=== PATIENT | male | born 1970 | race American Indian/Alaskan Native ===

== ENCOUNTER 2016-10-30 09:37 | Emergency (ER) | payer SELFPAY ==
[2016-10-30] MEDS ORDERED: NACL 0.9% 1000 ML 1,000 ML IV ONE (10:38)
[2016-10-30] MEDS ORDERED: MORPHINE IV ONE (10:50)
[2016-10-30] MEDS ORDERED: ZOFRAN IV ONE (10:50)
--- NOTE | 2016-10-30 11:03 | Emergency Department Report ---
ED General Adult HPI - General Chief complaint: Headache Stated complaint: HEADACHE Time Seen by Provider: 10/30/16 10:36 Source: patient, EMS Mode of arrival: Stretcher Limitations: Other - History of Present Illness Initial comments: 46-year-old male presents to the emergency department via EMS complaining of headache and neck pain. Patient states that he had been drinking alcohol all last night and early this morning. He states that he was walking around and passed out, hitting his head on the floor. Patient is complaining of pain above his left eye the top of his head as well as in the back of his neck. There are no other complaints. -: Sudden, This morning Location: head, neck Radiation: non-radiation Severity scale (0 -10): 10 Quality: aching Consistency: constant Improves with: none Worsens with: none Associated Symptoms: denies other symptoms - Related Data Previous Rx's Medication Instructions Recorded Last Taken Type ALBUTEROL Inhaler [ProAir HFA 2 puff IH QID PRN #1 inhalation 04/17/14 05/05/14 Rx Inhaler] Budesonide [Pulmicort Respules] 0.5 mg IH Q12HRT #30 nebu 05/12/14 Unknown Rx Ipratropium/Albuterol Sulfate 1 ampul IH Q6HRT #30 ampul.neb 05/12/14 01/03/15 Rx [Duoneb 0.5 mg-3 mg/3 ml Soln] Lisinopril [Zestril TAB] 40 mg PO QDAY #30 tablet 05/12/14 01/03/15 Rx Albuterol Sulfate [Ventolin HFA] 2 puff IH Q4H PRN #1 hfa.aer.ad 01/03/15 Unknown Rx amLODIPine [Norvasc] 10 mg PO DAILY #30 tab 01/03/15 Unknown Rx predniSONE [Deltasone] 20 mg PO TID #9 tab 01/03/15 Unknown Rx Allergies Allergy/AdvReac Type Severity Reaction Status Date / Time No Known Allergies Allergy Unverified 04/17/14 14:32 ED Review of Systems ROS: Stated complaint: HEADACHE Other details as noted in HPI Comment: All other systems reviewed and negative Musculoskeletal: other (neck pain) Neurological: headache ED Past Medical Hx - Past Medical History Previous Medical History?: Yes Hx Hypertension: Yes Hx Congestive Heart Failure: No Hx Diabetes: No Hx Sickle Cell Disease: No Hx Asthma: Yes Hx COPD: No - Surgical History Past Surgical History?: No - Family History Family history: hypertension - Social History Smoking Status: Current Some Day Smoker Substance Use Type: Alcohol - Medications Home Medications: Home Medications Medication Instructions Recorded Confirmed Last Taken Type ALBUTEROL Inhaler [ProAir HFA 2 puff IH QID PRN #1 inhalation 04/17/14 01/03/15 05/05/14 Rx Inhaler] Budesonide [Pulmicort Respules] 0.5 mg IH Q12HRT #30 nebu 05/12/14 01/03/15 Unknown Rx Ipratropium/Albuterol Sulfate 1 ampul IH Q6HRT #30 ampul.neb 05/12/14 01/03/15 01/03/15 Rx [Duoneb 0.5 mg-3 mg/3 ml Soln] Lisinopril [Zestril TAB] 40 mg PO QDAY #30 tablet 05/12/14 01/03/15 01/03/15 Rx Albuterol Sulfate [Ventolin HFA] 2 puff IH Q4H PRN #1 hfa.aer.ad 01/03/15 Unknown Rx amLODIPine [Norvasc] 10 mg PO DAILY #30 tab 01/03/15 Unknown Rx predniSONE [Deltasone] 20 mg PO TID #9 tab 01/03/15 Unknown Rx ED Physical Exam - General Limitations: Other General appearance: alert, in no apparent distress - Head Head exam: Present: normocephalic, other (2 cm linear abrasion noted to the left parietal scalp with mild underlying edema. No active bleeding is noted. Edema and ecchymosis is noted superior to the left eye.) - Eye Eye exam: Present: normal appearance, PERRL, EOMI - ENT ENT exam: Present: normal exam, normal orophraynx, mucous membranes moist - Neck Neck exam: Present: normal inspection, tenderness (tenderness to palpation diffuse posterior paracervical spinous muscles. No midline tenderness.), full ROM. Absent: meningismus - Respiratory Respiratory exam: Present: normal lung sounds bilaterally. Absent: respiratory distress - Cardiovascular Cardiovascular Exam: Present: regular rate, normal rhythm, normal heart sounds - GI/Abdominal GI/Abdominal exam: Present: soft, normal bowel sounds. Absent: distended, tenderness - Extremities Exam Extremities exam: Present: normal inspection, full ROM. Absent: tenderness - Back Exam Back exam: Present: normal inspection, full ROM. Absent: tenderness - Neurological Exam Neurological exam: Present: alert, oriented X3. Absent: motor sensory deficit - Skin Skin exam: Present: warm, dry, intact ED Course Vital Signs 10/30/16 10/30/16 10/30/16 09:55 10:01 10:35 Temperature 99.7 F H 99.7 F H Pulse Rate 100 H 100 H Respiratory 16 16 18 Rate Blood Pressure 187/109 Blood Pressure 187/109 [Right] O2 Sat by Pulse 96 96 96 Oximetry 10/30/16 10/30/16 10:57 12:20 Temperature Pulse Rate 91 H Respiratory 18 16 Rate Blood Pressure Blood Pressure 136/88 [Right] O2 Sat by Pulse 97 Oximetry ED Medical Decision Making - EKG Data -: EKG Interpreted by Me EKG shows normal: sinus rhythm, axis, intervals, ST-T waves Rate: normal - EKG Data When compared to previous EKG there are: no significant change Interpretation: unchanged when compared t (07/19/2014), LVH - Radiology Data Radiology results: report reviewed CT of the head, orbits, and cervical spine showed no acute bony injury. There is soft tissue swelling noted above the left eye. - Medical Decision Making Imaging results reviewed and discussed with the patient. Patient has a sober ride here. Patient will be discharged home at this time. - Differential Diagnosis head injury, cervical strain, contusion, fracture, alcohol intoxication Critical care attestation.: If time is entered above; I have spent that time in minutes in the direct care of this critically ill patient, excluding procedure time. ED Disposition Clinical Impression: Forehead contusion Qualifiers: Encounter type: initial encounter Qualified Code(s): S00.83XA - Contusion of other part of head, initial encounter Disposition: DISCHARGED TO HOME OR SELFCARE Is pt being admited?: No Condition: Stable Instructions: Contusion in Adults (ED) Referrals: PRIMARY CARE, [Primary Care Provider] - 3-5 Days Time of Disposition: 13:47
--- NOTE | 2016-10-30 11:10 | Cat Scan Report ---
CT HEAD WITHOUT CONTRAST: 10/30/16 09:37:00 CLINICAL: Fall with blow to the head.. TECHNIQUE: 2.5-mm noncontrast scans. COMPARISON:None FINDINGS: Motion degrades the quality of the exam.The ventricles and sulci are normal for age. No abnormal intracranial density. A left frontal scalp hematoma measures approximately 7 cm in diameter. A central 3 cm collection of clotted blood within it. No associated skull fracture. The calvarium and skull base are intact. The sinuses are clear. No mass or mass effect. No intracranial hemorrhage, edema or extra-axial collection. The orbits are intact. IMPRESSION: Left frontal supraorbital scalp edema and hemorrhage. No skull fracture and no evidence of intracranial injury.
--- NOTE | 2016-10-30 11:11 | Cat Scan Report ---
CT CERVICAL SPINE WITHOUT CONTRAST:10/30/16 09:37:00 CLINICAL: Fall with blow to the head. TECHNIQUE: Volumetric acquisition and 1.25-mm scan reconstructions without contrast. Sagittal and coronal reformats were performed. FINDINGS: Normal vertebral body height, alignment and disk spaces. No fracture or subluxation. Mild degenerative disc disease at C5-6. Normal soft tissues and airway. No apparent disc protrusions or bulges. IMPRESSION: No apparent traumatic injury. Mild C5-6 degenerative disc disease.
--- NOTE | 2016-10-30 11:17 | Cat Scan Report ---
CT FACIAL BONES AND ORBITS WITHOUT CONTRAST: 10/30/16 09:37:00 CLINICAL: Fall with blow to the head. TECHNIQUE: Volumetric acquisition and 1.25 mm scan reconstructions without contrast. Sagittal and coronal reformats were performed. FINDINGS: Left periorbital and frontal soft tissue swelling with a 3 cm hematoma. The facial bones are intact. No facial fracture or skull fracture. Normal orbits. Mild maxillary mucoperiosteal thickening. IMPRESSION: Negative except for left periorbital and frontal soft tissue injury.
[2016-10-30 12:21] VITALS: BP 136/88
== END 2016-10-30 13:59 | disposition home or self-care (01) ==
LOC: ED 09:37
DX: S00.83XA Contusion of other part of head, initial encounter (principal); I10 Essential (primary) hypertension; J45.909 Unspecified asthma, uncomplicated; F17.200 Nicotine dependence, unspecified, uncomplicated; W18.30XA Fall on same level, unspecified, initial encounter; Y93.9 Activity, unspecified; Y92.9 Unspecified place or not applicable; Y99.9 Unspecified external cause status
CPT/HCPCS: 70450; 70480; 72125; 93005; 93010; 96361; 96374; 96375; 99284; J2270; J2405

== ENCOUNTER 2019-04-29 16:40 | Observation (INO) | payer SELFPAY ==
--- NOTE | 2019-04-29 17:09 | Emergency Department Report ---
Blank Doc - Documentation Documentation: This is a 48-year-old male that presents with midsternum chest pain and with SOB and radiation to left arm. Stated has a cough and is worse with coughing. This initial assessment/diagnostic orders/clinical plan/treatment(s) is/are subject to change based on patient's health status, clinical progression and re- assessment by fellow clinical providers in the ED. Further treatment and workup at subsequent clinical providers discretion. Patient/guardians urged not to elope from the ED as their condition may be serious if not clinically assessed and managed. Initial orders include: 1- Patient sent to MAIN ED for further evaluation and treatment. 2- labs 3- EKG 4- CXR
--- NOTE | 2019-04-29 17:42 | XRay Report ---
CHEST 2 VIEWS INDICATION / CLINICAL INFORMATION: Chest Pain. COMPARISON: None available. FINDINGS: SUPPORT DEVICES: None. HEART / MEDIASTINUM: No significant abnormality. LUNGS / PLEURA: No significant pulmonary or pleural abnormality. No pneumothorax. ADDITIONAL FINDINGS: No significant additional findings. IMPRESSION: 1. No acute findings. Signer Name: Jose Enriquez MD Signed: 04/29/2019 4:38 PM Workstation Name: [id number]
[2019-04-29 17:56] LABS: BUN/Creatinine Ratio 13; Blood Urea Nitrogen 9 mg/dL (9-20); Calcium 9.1 mg/dL (8.4-10.2); Hemolysis Index 5
[2019-04-29 17:58] LABS: Basophils # (Auto) 0.1 K/mm3 (0.0-0.1); Eosinophils # (Auto) 0.1 K/mm3 (0.0-0.4); Eosinophils % (Auto) 1.8 % (0.0-4.3); Monocytes # (Auto) 0.9 K/mm3 (0.0-0.8); Monocytes % (Auto) 12.4 % (0.0-7.3)
[2019-04-29 18:14] LABS: Partial Thromboplastin Time 27.2 Sec. (24.2-36.6)
[2019-04-29 19:05] LABS: Hemoglobin 12.6 gm/dl (11.8-15.2)
[2019-04-29 19:06] LABS: Hematocrit 40.6 % (35.5-45.6); Mean Corpuscular HGB Conc 31 % (32-34); Mean Corpuscular Volume 77 fl (84-94); Red Cell Distribution Width 21.4 % (13.2-15.2)
[2019-04-29 19:07] LABS: Basophils % (Auto) 0.8 % (0.0-1.8); Lymphocytes # (Auto) 1.2 K/mm3 (1.2-5.4); Lymphocytes % (Auto) 15.8 % (13.4-35.0); Platelet Count 234 K/mm3 (140-440)
[2019-04-29] MEDS ORDERED: BABY ASPIRIN PO ONE (21:55)
[2019-04-29] MEDS ORDERED: APRESOLINE IV ONE (21:55)
--- NOTE | 2019-04-29 22:22 | Emergency Department Report ---
ED Chest Pain HPI - General Chief Complaint: Chest Pain Stated Complaint: CHEST PAIN/FINGER NUMB Time Seen by Provider: 04/29/19 17:07 Source: patient Mode of arrival: Ambulatory Limitations: No Limitations - History of Present Illness Initial Comments: 48-year-old -[place] male presents to the emergency department with a few different complaints. Patient complains of a generalized thumping pain to his chest that has been going on since last night. The pain will sometimes radiate down his left arm and is associated with some shortness of breath. He has a chronic cough that has been going on for many months and he says that his cough does worsen the pains. The patient also complains of some numbness to the "left side of my body." He denies any headache, vision change, slurred speech. He has not taken anything for her symptoms prior to presentation. He has a past medical history of hypertension and does present with elevated blood pressure despite alleged compliance with his medications. He denies any tobacco or illicit drug use. No recent travel or sick contacts at home. He does not have a primary care physician. He has never had a stress test done. Severity scale (0 -10): 5 - Related Data Previous Rx's Medication Instructions Recorded Last Taken Type amLODIPine [Norvasc] 10 mg PO DAILY #30 tab 01/03/15 04/30/19 Rx Allergies Allergy/AdvReac Type Severity Reaction Status Date / Time lisinopril Allergy Angioedema Verified 04/29/19 17:09 Heart Score - HEART Score History: Moderately suspicious EKG: Normal Age: 45-65 Risk factors: 1-2 risk factors Troponin: < normal limit HEART Score: 3 - Critical Actions Critical Actions: 0-3 pts:0.9-1.7%risk of adverse cardiac event.Candidate for discharge ED Review of Systems ROS: Stated complaint: CHEST PAIN/FINGER NUMB Other details as noted in HPI Comment: All other systems reviewed and negative Constitutional: denies: chills, fever Eyes: denies: eye pain, vision change ENT: denies: ear pain, throat pain Respiratory: cough, shortness of breath Cardiovascular: chest pain. denies: palpitations Gastrointestinal: denies: abdominal pain, vomiting Genitourinary: denies: dysuria, frequency Musculoskeletal: myalgia. denies: back pain Skin: denies: rash, lesions Neurological: numbness. denies: confusion ED Past Medical Hx - Past Medical History Previous Medical History?: Yes Hx Hypertension: Yes Hx Congestive Heart Failure: No Hx Diabetes: No Hx Sickle Cell Disease: No Hx Asthma: Yes Hx COPD: No - Surgical History Past Surgical History?: No - Social History Smoking Status: Never Smoker - Medications Home Medications: Home Medications Medication Instructions Recorded Confirmed Last Taken Type amLODIPine [Norvasc] 10 mg PO DAILY #30 tab 01/03/15 04/30/19 04/30/19 Rx ED Physical Exam - General Limitations: No Limitations - Other Other exam information: GENERAL: The patient is well-developed well-nourished. HENT: Normocephalic. Atraumatic. Patient has moist mucous membranes. EYES: Extraocular motions are intact. Pupils equal reactive to light bilaterally. NECK: Supple. Trachea is midline. CHEST/LUNGS: Clear to auscultation. There is no respiratory distress noted. Chest pain is not reproducible to palpation of the chest wall. HEART/CARDIOVASCULAR: Regular. There is no tachycardia. There is no murmur. ABDOMEN: Abdomen is soft, nontender. Patient has normal bowel sounds. There is no abdominal distention. SKIN: Skin is warm and dry. NEURO: The patient is awake, alert, and oriented. The patient is cooperative. No motor or focal deficits. The patient has normal speech. Cranial nerves II through XII grossly intact. MUSCULOSKELETAL: There is no tenderness or deformity. There is no limitation range of motion. There is no evidence of acute injury. ED Course Vital Signs 04/29/19 04/29/19 04/29/19 17:07 21:16 21:25 Temperature 98.1 F Pulse Rate 86 73 Respiratory 16 15 19 Rate Blood Pressure 181/120 O2 Sat by Pulse 96 Oximetry 04/29/19 04/29/19 04/29/19 21:30 21:45 22:00 Temperature Pulse Rate 59 L 61 59 L Respiratory 13 19 17 Rate Blood Pressure 182/113 185/115 167/111 O2 Sat by Pulse 96 98 97 Oximetry 04/29/19 04/29/19 04/29/19 22:15 22:30 22:33 Temperature Pulse Rate 61 73 69 Respiratory 17 21 Rate Blood Pressure 172/110 178/116 178/116 O2 Sat by Pulse 96 97 Oximetry 04/29/19 04/29/19 04/29/19 22:45 23:01 23:15 Temperature Pulse Rate 64 68 64 Respiratory 16 16 10 L Rate Blood Pressure 174/103 172/108 174/103 O2 Sat by Pulse 97 100 97 Oximetry 04/29/19 04/29/19 04/29/19 23:30 23:43 23:45 Temperature Pulse Rate 69 70 66 Respiratory 17 15 17 Rate Blood Pressure 163/108 172/108 163/103 O2 Sat by Pulse 97 99 99 Oximetry 04/30/19 04/30/19 04/30/19 00:00 00:45 00:53 Temperature Pulse Rate 68 Respiratory Rate Blood Pressure 163/103 178/118 178/116 O2 Sat by Pulse 98 Oximetry KG score - Kg Score Age > 65: (0) No Aspirin use within the Past 7 Days: (0) No 3 or more CAD Risk Factors: (0) No 2 or more Angina events in past 24 hrs: (1) Yes Known CAD with more than 50% Stenosis: (0) No Elevated Cardiac Markers: (0) No ST Deviation Greater than 0.5mm: (0) No KG Score: 1 ED Medical Decision Making - Lab Data Result diagrams: 04/29/19 17:24 04/29/19 17:24 - EKG Data -: EKG Interpreted by Me EKG shows normal: sinus rhythm, axis, intervals, QRS complexes, ST-T waves (early repolarization) Rate: normal - EKG Data When compared to previous EKG there are: previous EKG unavailable Interpretation: other (early repolarization) - Radiology Data Radiology results: report reviewed, image reviewed interpreted by me: Chest x-ray does not show any acute process. There are no pleural effusions, obvious pneumonia and there is no pneumothorax. CT head/brain wo con INDICATION / CLINICAL INFORMATION: headache. TECHNIQUE: Axial CT imaging of the brain was obtained without IV contrast. Coronal and sagittal reformatted imaging obtained and reviewed. All CT scans at this location are performed using CT dose reduction for ALARA by means of automated exposure control. COMPARISON: None available. FINDINGS: No intracranial hemorrhage, mass, or midline shift is noted. No extra-axial fluid collection or suggestion of acute territorial infarction. Ventricular system and basilar cisterns are unremarkable. Visualized paranasal sinuses demonstrate mild mucosal thickening throughout the anterior and posterior ethmoid air cells bilaterally. The remainder of the paranasal sinuses are well aerated and clear. No calvarial fracture or other abnormality noted. IMPRESSION: 1. No acute intracranial abnormality. 2. Mild mucosal thickening throughout the ethmoid air cells bilaterally. CTA CHEST WITH IV CONTRAST INDICATION / CLINICAL INFORMATION: CP, elevated dimer. TECHNIQUE: Axial CT images were obtained through the chest after injection of 100 cc IV contrast. 3 plane MIP and/or 3D reconstructions were produced. All CT scans at this location are performed using CT dose reduction for ALARA by means of automated exposure control. COMPARISON: Chest radiograph, 04/29/2019 FINDINGS: PULMONARY ARTERIES: No pulmonary emboli. THORACIC AORTA: No significant abnormality. HEART: No significant abnormality. CORONARY ARTERIES: No significant calcification. PLEURA: No pleural effusion. No pneumothorax. LYMPH NODES: No significant adenopathy. LUNGS: No acute air space or interstitial disease. Incidental finding of a few small blebs in both apices. ADDITIONAL FINDINGS: None. UPPER ABDOMEN: No acute findings. SKELETAL STRUCTURES: No significant osseous abnormality. IMPRESSION: 1. No CT evidence for pulmonary embolism. 2. No acute findings. - Medical Decision Making Patient presents to the emergency department with a complaint of some chest pain and shortness of breath since last night. Also complains of some intermittent left-sided numbness. No obvious motor or focal deficits. Cranial nerves are i ntact. CT scan of the head did not show any bleed, shift, mass, ischemia, or any other acute process. Chest x-ray did not show any acute process. Patient's labs have been mostly unremarkable including negative troponins 2 this far, but the patient did have a slightly elevated and equivocal d-dimer. For this reason CT angiography of the chest was done but did not show any signs of any pulmonary embolism, dissection, aneurysm, or any other acute process. The patient continues to have some intermittent chest pains and has never had a full cardiac workup including any type of stress test. For these reasons, the patient will be admitted to the hospital for further evaluation and treatment and was extended for admission by the hospitalist, Dr. Vasquez. - Differential Diagnosis SD, TIA, costochondritis, GERD, pneumonia Critical Care Time: No Critical care attestation.: If time is entered above; I have spent that time in minutes in the direct care of this critically ill patient, excluding procedure time. ED Disposition Clinical Impression: Acute chest pain, Hypertensive urgency Disposition: OP ADMIT IP TO THIS HOSP Is pt being admited?: Yes Condition: Fair Instructions: Chest Pain (ED) Referrals: FLORIN COBURN MD [Primary Care Provider] - 3-5 Days Time of Disposition: 01:19 - Assessment Assessment Interval: Baseline - Level of Consciousness 1a. Level of Consciousness: alert/keenly responsive - LOC Questions 1b. LOC Questions: answers both correctly - LOC Command 1c. LOC Commands: performs tasks correctly - Best Gaze 2. Best Gaze: normal - Visual 3. Visual: no visual loss - Facial Palsy 4. Facial Palsy: normal symmetrical movement - Motor Arm 5a. Motor Arm Left: no drift 5b. Motor Arm Right: no drift - Motor Leg 6a. Motor Leg Left: no drift 6b. Motor Leg Right: no drift - Limb Ataxia 7. Limb Ataxia: absent - Sensory 8. Sensory: normal - Best Language 9. Best Language: no aphasia - Dysarthria 10. Dysarthria: normal - Extinction and Inattention 11. Extinction/Inattention: no abnormality - Scoring Total Score: 0 Stroke Severity: No Stroke Symptoms
--- NOTE | 2019-04-30 00:22 | Cat Scan Report ---
CT head/brain wo con INDICATION / CLINICAL INFORMATION: headache. TECHNIQUE: Axial CT imaging of the brain was obtained without IV contrast. Coronal and sagittal reformatted imag ing obtained and reviewed. All CT scans at this location are performed using CT dose reduction for AL STEVEN by means of automated exposure control. COMPARISON: None available. FINDINGS: No intracranial hemorrhage, mass, or midline shift is noted. No extra-axial fluid collection or sugge stion of acute territorial infarction. Ventricular system and basilar cisterns are unremarkable. Visualized paranasal sinuses demonstrate mild mucosal thickening throughout the anterior and posterio r ethmoid air cells bilaterally. The remainder of the paranasal sinuses are well aerated and clear. N o calvarial fracture or other abnormality noted. IMPRESSION: 1. No acute intracranial abnormality. 2. Mild mucosal thickening throughout the ethmoid air cells bilaterally. Signer Name: Roya Black MD Signed: 04/29/2019 11:17 PM Workstation Name: [id number]
[2019-04-30] MEDS ORDERED: APRESOLINE IV ONE (00:46)
--- NOTE | 2019-04-30 00:46 | Cat Scan Report ---
CTA CHEST WITH IV CONTRAST INDICATION / CLINICAL INFORMATION: CP, elevated dimer. TECHNIQUE: Axial CT images were obtained through the chest after injection of 100 cc IV contrast. 3 plane MIP an d/or 3D reconstructions were produced. All CT scans at this location are performed using CT dose redu ction for [facility] by means of automated exposure control. COMPARISON: Chest radiograph, 04/29/2019 FINDINGS: PULMONARY ARTERIES: No pulmonary emboli. THORACIC AORTA: No significant abnormality. HEART: No significant abnormality. CORONARY ARTERIES: No significant calcification. PLEURA: No pleural effusion. No pneumothorax. LYMPH NODES: No significant adenopathy. LUNGS: No acute air space or interstitial disease. Incidental finding of a few small blebs in both ap ices. ADDITIONAL FINDINGS: None. UPPER ABDOMEN: No acute findings. SKELETAL STRUCTURES: No significant osseous abnormality. IMPRESSION: 1. No CT evidence for pulmonary embolism. 2. No acute findings. Signer Name: Roya Black MD Signed: 04/29/2019 11:42 PM Workstation Name: [id number]
[2019-04-30] MEDS ORDERED: TYLENOL PO PRN (03:08)
[2019-04-30] MEDS ORDERED: SODIUM CHLORIDE FLUSH SYRINGE 10 ML IV PRN (03:08)
[2019-04-30] MEDS ORDERED: MORPHINE IV PRN (03:08)
[2019-04-30] MEDS ORDERED: ZOFRAN IV PRN (03:08)
[2019-04-30] MEDS ORDERED: APRESOLINE IV PRN (03:17)
--- NOTE | 2019-04-30 03:26 | History and Physical Report ---
History of Present Illness Date of examination: 04/30/19 Chief complaint: CP and left sided numbness History of present illness: 48-year-old -[place] male with PMH of HTN, Asthma with chronic perennial rhinitis presents to the emergency department with a few different complaints. Patient complains of a generalized thumping pain to his chest that has been going on since last night and when he coughs. The pain today radiate down his left arm and his fingers were numb. He felt he has some fatigue associated with some shortness of breath. He has a chronic cough that has been going on for many months and he says that his cough does worsen the pains. ALso, reports having a constant runny nose for which he has tried OTC meds but he is not taking anything now. The patient also complains of some numbness to the "left side of my body. that went away. He denies any headache, vision change, slurred speech, dysuria, polyuria, syncope, cardiac history. He has not taken anything for her symptoms prior to presentation. He has a past medical history of hypertension and does present with elevated blood pressure despite self reported compliance with his medications. Of note, his initial BP was 178/118 and he is on a meager Norvasc 10mg Po Daily. No previous hx of stress test. No FH of heart disease and no tobacco use He denies any tobacco or illicit drug use. No recent travel or sick contacts at home. He does not have a primary care physician. He has never had a stress test done. Past History Past Medical History: hypertension, other (asthma) Past Surgical History: No surgical history Social history: full code. denies: smoking, alcohol abuse Family history: no significant family history Medications and Allergies Allergies Allergy/AdvReac Type Severity Reaction Status Date / Time lisinopril Allergy Angioedema Verified 04/29/19 17:09 Home Medications Medication Instructions Recorded Confirmed Last Taken Type amLODIPine [Norvasc] 10 mg PO DAILY #30 tab 01/03/15 04/30/19 04/30/19 Rx Active Meds: Active Medications Acetaminophen (Tylenol) 650 mg PO Q4H PRN PRN Reason: Pain MILD(1-3)/Fever >100.5/PEREIRA Albuterol/Ipratropium (Duoneb *Not For Prn Use*) 1 ampul IH Q6HRT ENMANUEL Benzonatate (Tessalon Perles) 100 mg PO Q8HR [facility] Stop: 04/30/19 22:01 Guaifenesin (Mucinex Er) 600 mg PO BID [facility] Hydralazine HCl (Apresoline) 20 mg IV Q4HR PRN PRN Reason: Hypertension Sodium Chloride (Nacl 0.45% 1000 Ml) 1,000 mls @ 75 mls/hr IV DIRECT ENMANUEL Morphine Sulfate (Morphine) 2 mg IV Q4H PRN PRN Reason: Pain, Moderate (4-6) Nifedipine (Procardia Xl) 60 mg PO QDAY [facility] Ondansetron HCl (Zofran) 4 mg IV Q8H PRN PRN Reason: Nausea And Vomiting Oxymetazoline HCl (Afrin) 2 spray NS Q12H [facility] Stop: 05/03/19 03:59 Sodium Chloride (Sodium Chloride Flush Syringe 10 Ml) 10 ml IV BID ENMANUEL Sodium Chloride (Sodium Chloride Flush Syringe 10 Ml) 10 ml IV PRN PRN PRN Reason: LINE FLUSH Review of Systems All systems: negative Cardiovascular: shortness of breath Respiratory: congestion, wheezing Exam - Constitutional Vitals: Temp Pulse Resp BP Pulse Ox 98.1 F 87 18 141/88 97 04/29/19 17:07 04/30/19 01:30 04/30/19 01:30 04/30/19 01:30 04/30/19 01:30 General appearance: Present: no acute distress, well-nourished - EENT Eyes: Present: PERRL ENT: hearing intact, clear oral mucosa - Neck Neck: Present: supple, normal ROM - Respiratory Respiratory effort: normal Respiratory: bilateral: CTA, wheezing (very faint.) - Cardiovascular Heart Sounds: Present: S1 & S2. Absent: rub, click - Extremities Extremities: pulses symmetrical, No edema Peripheral Pulses: within normal limits - Abdominal General gastrointestinal: Present: soft, non-tender, non-distended, normal bowel sounds Male genitourinary: Present: normal - Integumentary Integumentary: Present: clear, warm, dry - Musculoskeletal Musculoskeletal: gait normal, strength equal bilaterally - Psychiatric Psychiatric: appropriate mood/affect, intact judgment & insight - Neurologic Neurologic: CNII-XII intact, moves all extremities Results - Labs CBC & Chem 7: 04/29/19 17:24 04/29/19 17:24 Labs: Laboratory Last Values WBC 7.6 K/mm3 (4.5-11.0) 04/29/19 17:24 RBC 5.30 M/mm3 (3.65-5.03) H 04/29/19 17:24 Hgb 12.6 gm/dl (11.8-15.2) 04/29/19 17:24 Hct 40.6 % (35.5-45.6) 04/29/19 17:24 MCV 77 fl (84-94) L 04/29/19 17:24 MCH 24 pg (28-32) L 04/29/19 17:24 MCHC 31 % (32-34) L 04/29/19 17:24 RDW 21.4 % (13.2-15.2) H 04/29/19 17:24 Plt Count 234 K/mm3 (140-440) 04/29/19 17:24 Lymph % (Auto) 15.8 % (13.4-35.0) 04/29/19 17:24 Forrest % (Auto) 12.4 % (0.0-7.3) H 04/29/19 17:24 Eos % (Auto) 1.8 % (0.0-4.3) 04/29/19 17:24 Baso % (Auto) 0.8 % (0.0-1.8) 04/29/19 17:24 Lymph # 1.2 K/mm3 (1.2-5.4) 04/29/19 17:24 Forrest # 0.9 K/mm3 (0.0-0.8) H 04/29/19 17:24 Eos # 0.1 K/mm3 (0.0-0.4) 04/29/19 17:24 Baso # 0.1 K/mm3 (0.0-0.1) 04/29/19 17:24 Seg Neutrophils % 69.2 % (40.0-70.0) 04/29/19 17:24 Seg Neutrophils # 5.3 K/mm3 (1.8-7.7) 04/29/19 17:24 PT 12.9 Sec. (12.2-14.9) 04/29/19 17:24 INR 1.00 (0.87-1.13) 04/29/19 17:24 APTT 27.2 Sec. (24.2-36.6) 04/29/19 17:24 335.93 ng/mlDDU (0-234) H 04/29/19 21:36 Sodium 138 mmol/L (137-145) 04/29/19 17:24 Potassium 3.7 mmol/L (3.6-5.0) 04/29/19 17:24 Chloride 100.0 mmol/L (98-107) 04/29/19 17:24 Carbon Dioxide 24 mmol/L (22-30) 04/29/19 17:24 18 mmol/L 04/29/19 17:24 BUN 9 mg/dL (9-20) 04/29/19 17:24 0.7 mg/dL (0.8-1.5) L 04/29/19 17:24 Estimated GFR > 60 ml/min 04/29/19 17:24 13 % 04/29/19 17:24 Glucose 99 mg/dL (75-100) 04/29/19 17:24 Calcium 9.1 mg/dL (8.4-10.2) 04/29/19 17:24 < 0.010 ng/mL (0.00-0.029) 04/29/19 20:20 Assessment and Plan Assessment and plan: Hypertensive Urgency - Cp with malignant HTN upon admission. I doubt cardiac etiology. He has no risk factors and is CP free. Reassess once normotensive for any need for further cardiac stress study. - DC Norvasc for ineffectiveness. Started Procardial XL at 60mg - IF troponins are negative, then DC NPO status and start Cardiac diet. I c - low salt diet discussed with the pt - CHronic allergic rhinitis - with swollen bilateral turbinates; no maxillary tenderness - causing chronic cough, URI -tessalon, Afrin spray, mucinex Asthma -mild and due to above - bronchodilators and nasal spray
[2019-04-30] MEDS ORDERED: NACL 0.45% 1000 ML 1,000 ML IV SCH (04:00)
[2019-04-30 04:24] LABS: BUN/Creatinine Ratio 15; Blood Urea Nitrogen 9 mg/dL (9-20); Calcium 8.9 mg/dL (8.4-10.2); Chol/HDL Ratio 2.71 %; HDL Cholesterol 74 mg/dL (40-59); Hemolysis Index 4; Iron 30 ug/dL (49-181); LDL Cholesterol,Direct 132 mg/dL (50-130); Total Iron Binding Capacity 343 mcg/dL (250-450)
[2019-04-30] MEDS: MUCINEX ER PO SCH ×3 (05:10→21:18)
[2019-04-30] MEDS: TESSALON PERLES PO SCH ×3 (05:10→21:18)
[2019-04-30] MEDS: PROCARDIA XL PO SCH (10:10)
[2019-04-30] MEDS: SODIUM CHLORIDE FLUSH SYRINGE 10 ML IV SCH ×2 (10:11→21:18)
[2019-04-30] MEDS: VICKS SINEX NS SCH ×2 (10:40→21:18)
[2019-04-30] MEDS: DUONEB *Not for PRN Use IH SCH ×3 (10:45→19:17)
[2019-04-30] MEDS ORDERED: K-DUR PO ONE (12:00)
[2019-04-30] MEDS ORDERED: NACL 0.45% 1000 ML IV SCH (15:00)
--- NOTE | 2019-04-30 19:14 | Event Note ---
Date: 04/30/19 Patient seen and examined medical records reviewed patient was admitted this morning with chest pain Patient complaints of intermittent chest pain Cardiac enzymes 3 negative However in view of risk factors The check a Lexiscan stress test tomorrow to rule out reversible ischemia Echocardiogram for LV function ejection fraction Medical records we will believe that the current management Possible discharge if stress test is negative and if patient is comfortable tomorrow Plan of care discussed with the patient
[2019-05-01] MEDS: DUONEB *Not for PRN Use IH SCH ×3 (03:44→13:05)
[2019-05-01] MEDS: TESSALON PERLES PO SCH (05:08)
[2019-05-01 07:01] LABS: BUN/Creatinine Ratio 10; Blood Urea Nitrogen 6 mg/dL (9-20); Calcium 9.3 mg/dL (8.4-10.2); Hemolysis Index 1
[2019-05-01] MEDS ORDERED: LEXISCAN IV ONE (07:14)
[2019-05-01] MEDS: PROCARDIA XL PO SCH (10:20)
[2019-05-01] MEDS: SODIUM CHLORIDE FLUSH SYRINGE 10 ML IV SCH (10:21)
[2019-05-01] MEDS: MUCINEX ER PO SCH (10:21)
[2019-05-01] MEDS: VICKS SINEX NS SCH (10:25)
[2019-05-01 12:14] VITALS: BP 127/89
--- NOTE | 2019-05-01 16:27 | Discharge Summary ---
Providers - Providers Date of Admission: 04/30/19 04:01 Date of discharge: 05/01/19 Attending physician: SATYA KRISHNAMURTHY [facility] Reason for admission: Chest pain Condition: Fair Pertinent studies: CT Head; no acute abnormality, mild sinus thickening CTA chest; negative for PE Chest x-ray; no acute abnormality Stress test; no ischemia and normal LV function 58% ejection fraction; Hospital course: 48-year-old -[place] Citizen male with PMH of HTN, Asthma with chronic perennial rhinitis presents to the emergency department with a few different complaints. Patient complains of a generalized thumping pain to his chest that has been going on since last night and when he coughs. The pain today radiate down his left arm and his fingers were numb. He felt he has some fatigue associated with some shortness of breath. The patient was admitted to the hospital symptomatically managed had a CTA chest negative for PE chest x-ray no acute abnormalities patient also had negative CT scan of the head, subsequently underwent stress test which was normal and no ischemia and normal left ventricular function and ejection fraction Patient was symptomatically managed today he is comfortable no new complaints vital signs stable Physical examination unremarkable Stable to be discharged home on medications Advised to follow up cardiology should he have recurrent chest pain or shortness of breath Patient verbalized understanding Final diagnosis; --Atypical chest pain; probably noncardiac, possible GERD Negative stress test, supportive care --GERD; probably the cause of chest pain, Protonix --Hypertensive urgency; present on admission Well-controlled blood pressures, continue antihypertensives --History of bronchial asthma; nebulizers and supportive care --Chronic allergic rhinitis; symptomatic management Patient is stable at discharge Disposition: MN-01 TO HOME OR SELFCARE Time spent for discharge: 32 min Core Measure Documentation - Palliative Care Palliative Care/ Comfort Measures: Not Applicable - Core Measures Any of the following diagnoses?: none Exam - Constitutional Vitals: Temp Pulse Resp BP Pulse Ox 98.3 F 98 H 19 127/89 95 05/01/19 12:12 05/01/19 13:16 05/01/19 13:16 05/01/19 12:12 05/01/19 12:12 General appearance: Present: no acute distress, well-nourished - EENT Eyes: Present: PERRL, EOM intact - Neck Neck: Present: supple, normal ROM - Respiratory Respiratory effort: normal Respiratory: bilateral: diminished, negative: rales, rhonchi, wheezing - Cardiovascular Rhythm: regular Heart Sounds: Present: S1 & S2 - Extremities Extremities: no ischemia, No edema - Abdominal General gastrointestinal: Present: soft, non-tender, non-distended, normal bowel sounds - Integumentary Integumentary: Present: clear, warm - Musculoskeletal Musculoskeletal: strength equal bilaterally - Psychiatric Psychiatric: appropriate mood/affect, cooperative - Neurologic Neurologic: CNII-XII intact, moves all extremities Plan Activity: no restrictions Diet: low salt Additional Instructions: If you have Chest pain or shortness of breath contact M.D.or go to emergency room [facility] Care [facility] - 3-5 Days HAO SALAMANCA MD [Staff Physician] - 14 Days Prescriptions: Famotidine [Pepcid] 20 mg PO BID #20 tablet NIFEdipine XL [Procardia Xl] 60 mg PO QDAY #30 tablet
--- NOTE | 2019-05-01 22:58 | Treadmill Report ---
NUCLEAR CARDIAC IMAGING STUDY INDICATION FOR PROCEDURE: Chest pain. Informed consent was obtained. Vasodilator stress was achieved with the intravenous administration of 0.4 mg of Lexiscan per protocol. Rest and stress nuclear cardiac imaging were performed following intravenous administration of technetium-99m Myoview per protocol. Images were obtained in a 180-degree arc from 45 degrees CEDENO to 45 degrees LPO. After data acquisition and reconstruction, the images were processed and reoriented into the vertical long, horizontal long and horizontal short axis slices. A polar color map of the horizontal short axis slices was generated and reviewed. The rotating planar images reviewed in cinematic format on the computer console. Gated SPECT imaging demonstrates a post-stress left ventricular ejection fraction of 58% with normal wall motion. Myocardial perfusion imaging demonstrates no significant cavity change between stress and rest. No significant stress induced perfusion defects are seen. Nuclear cardiac imaging demonstrates grossly normal post-stress left ventricular systolic function with no significant evidence for myocardial ischemia or necrosis. JOB# [id number] DOMINIC/HIRAM
== END 2019-05-01 20:00 | disposition home or self-care (01) ==
LOC: ED 16:40 → 3B-SURG 04-30 04:01 → INTOOBSV 04-30 04:01 → 4A 04-30 04:12
PROVIDERS: ADMIT Hospitalist; ATTEND Internal Medicine
DX: J45.909 Unspecified asthma, uncomplicated (principal); J31.0 Chronic rhinitis; I16.0 Hypertensive urgency; I10 Essential (primary) hypertension; Z79.899 Other long term (current) drug therapy
CPT/HCPCS: 36415; 70450; 71046; 71275; 78452; 80048; 80061; 82728; 83550; 83735; 84484; 85025; 85379; 85610; 85730; 93005; 93010; 93017; 94640; 96374; 96376; 99284; A9502; G0378; J0360; J2785; Q9967; 96375

== ENCOUNTER 2020-09-02 05:46 | Emergency (ER) | payer SELFPAY ==
[2020-09-02 06:02] VITALS: BP 160/108
[2020-09-02] MEDS ORDERED: dexAMETHasone 20 MG/5 ML VIAL IM ONE (07:26)
[2020-09-02] MEDS ORDERED: KETOROLAC 60 MG/2 ML INJ IM ONE (07:26)
--- NOTE | 2020-09-02 07:31 | Emergency Department Report ---
ED Back Pain/Injury HPI - General Chief Complaint: Back Pain/Injury Stated Complaint: BACK PAIN Time Seen by Provider: 09/02/20 07:10 Source: patient, EMS Limitations: Physical Limitation - History of Present Illness Initial Comments: 50 year old male with pmhx of chronic neck pain s/p neck surgery in 04/2020 presents to ED c/o low back pain and posterior neck pain. Patient complains of low back pain, but points mainly to the SI areas bilaterally. He states that this pain started about a month ago. It has been constant, and radiates down into both legs. He denies any injury or strenuous activity. He states the pain is worse when he stands up to walk, after sitting for long period of time. He denies any bowel or bladder incontinence, urinary retention or constipation. He reports no lower extremity numbness, tingling or weakness or saddle anesthesia. He denies any abdominal pain, or UTI symptoms. Patient complains of pain to his left posterior neck which has been going on since his surgery back in April. He reports intermittent numbness and tingling in the fingertips since his surgery. He reports no upper extremity weakness, chest pain, shortness of breath, or any other neurological symptoms. He denies any fever or chills Patient states that he was taking ibuprofen and Lortab but he ran out about 2 to 3 weeks ago. He does admit that the pain in his neck and his lower back did increase after he ran out of his meds. Patient reports that he was unable to see his spinal surgeon at [place] due to insurance issues. He states that he does have an appointment for a medical screening October 07 to reassess his insurance status and then he will be able to follow-up with his neurosurgeon. MD Complaint: back pain, other (Neck Pain) -: month(s) Similar Symptoms Previously: Yes - Related Data Previous Rx's Medication Instructions Recorded Last Taken Type Famotidine [Pepcid] 20 mg PO BID #20 tablet 05/01/19 Unknown Rx NIFEdipine XL [Procardia Xl] 60 mg PO QDAY #30 tablet 05/01/19 Unknown Rx Acetaminophen/Codeine [Tylenol 1 tab PO Q4HR PRN #12 tablet 09/02/20 Unknown Rx /Codeine # 3 tab] methylPREDNISolone [Medrol 4MG 4 mg PO DAILY #1 tab.ds.pk 09/02/20 Unknown Rx DOSEPAK (21 tabs)] Allergies Allergy/AdvReac Type Severity Reaction Status Date / Time lisinopril Allergy Angioedema Verified 04/29/19 17:09 ED Review of Systems ROS: Stated complaint: BACK PAIN Other details as noted in HPI Comment: All other systems reviewed and negative Constitutional: denies: chills, fever Respiratory: denies: cough, orthopnea, shortness of breath, SOB with exertion, SOB at rest Cardiovascular: denies: palpitations, dyspnea on exertion, orthopnea, edema, syncope Gastrointestinal: denies: abdominal pain, nausea, diarrhea Genitourinary: denies: urgency, dysuria Musculoskeletal: back pain, other (Left posterior neck pain) Neurological: numbness (Fingertips bilaterally chronic). denies: headache, weakness, confusion, abnormal gait, vertigo Psychiatric: denies: anxiety, depression Hematological/Lymphatic: denies: easy bleeding, easy bruising ED Past Medical Hx - Past Medical History Hx Hypertension: Yes Hx Congestive Heart Failure: No Hx Diabetes: No Hx Sickle Cell Disease: No Hx Asthma: Yes Hx COPD: No - Surgical History Past Surgical History?: Yes Additional Surgical History: Back Sx 04/2020 - Social History Smoking Status: Never Smoker Substance Use Type: None - Medications Home Medications: Home Medications Medication Instructions Recorded Confirmed Last Taken Type Famotidine [Pepcid] 20 mg PO BID #20 tablet 05/01/19 Unknown Rx NIFEdipine XL [Procardia Xl] 60 mg PO QDAY #30 tablet 05/01/19 Unknown Rx Acetaminophen/Codeine [Tylenol 1 tab PO Q4HR PRN #12 tablet 09/02/20 Unknown Rx /Codeine # 3 tab] methylPREDNISolone [Medrol 4MG 4 mg PO DAILY #1 tab.ds.pk 09/02/20 Unknown Rx DOSEPAK (21 tabs)] ED Physical Exam - General Limitations: Physical Limitation General appearance: alert, in no apparent distress - Head Head exam: Present: atraumatic, normocephalic, normal inspection - Eye Eye exam: Present: normal appearance - Neck Neck exam: Present: normal inspection, tenderness (Patient has mild tenderness to palpation along the left paraspinal muscle with some mild spasm. No vertebral tenderness noted. He has full range of motion of his cervical spine.), full ROM, other. Absent: meningismus - Respiratory Respiratory exam: Present: normal lung sounds bilaterally. Absent: respiratory distress - Cardiovascular Cardiovascular Exam: Present: regular rate, normal rhythm. Absent: systolic murmur, diastolic murmur, rubs, gallop - GI/Abdominal GI/Abdominal exam: Absent: distended, tenderness - Extremities Exam Extremities exam: Present: full ROM - Back Exam Back exam: Present: normal inspection, tenderness (Patient has mild tenderness mainly along the SI joints bilaterally.), other (Patient has some mild limitation in lumbar flexion and extension due to pain.). Absent: paraspinal tenderness (No paraspinal muscle tenderness along the lumbar spine), vertebral tenderness (He does not have lumbar spine tenderness) - Neurological Exam Neurological exam: Present: alert, oriented X3, CN II-XII intact, abnormal gait (Slow with a mild limp but otherwise normal) - Psychiatric Psychiatric exam: Present: normal affect, normal mood - Skin Skin exam: Present: intact ED Course Vital Signs 09/02/20 05:57 Temperature 97.9 F Pulse Rate 85 Respiratory 17 Rate Blood Pressure 160/108 O2 Sat by Pulse 97 Oximetry ED Medical Decision Making - Radiology Data Patient presented to the ER today with complaints of back pain and neck pain. Patient is in no acute distress. Patient is neurologically intact and is ambulatory in the ER. Patient has no fever, no bowel or bladder incontinence, no saddle anesthesia, no focal weakness, and is otherwise alert and well- appearing. He is physical exam, and history does not suggest the presence of acute spinal epidural abscess, acute spinal epidural bleed, cauda equina, abdominal aortic aneurysm, aortic dissection, coronary artery dissection, acute coronary syndrome or any other process requiring further testing, treatment or consultation in the emergency department at this time. Patient will be discharged home with a prescription for pain. Recommend that he follows up with a spinal specialist. Patient's condition is stable and he is appropriate for discharge. Critical care attestation.: If time is entered above; I have spent that time in minutes in the direct care of this critically ill patient, excluding procedure time. ED Disposition Clinical Impression: Chronic SI joint pain, Cervical paraspinous muscle spasm, Chronic neck pain, Lumbar radicular syndrome Disposition: TO HOME OR SELFCARE Is pt being admited?: No Does the pt Need Aspirin: No Condition: Stable Instructions: Lumbar Radiculopathy (ED), Arthralgia (ED), Muscle Spasm (ED) Additional Instructions: Take the medication prescribed as directed. I recommend that you follow-up with your spinal surgeon for further assessment and treatment of your neck and lower back pain. Return to the ER if your symptoms changes or worsens in any way. Prescriptions: methylPREDNISolone [Medrol 4MG DOSEPAK (21 tabs)] 4 mg PO DAILY #1 tab.ds.pk Acetaminophen/Codeine [Tylenol /Codeine # 3 tab] 1 tab PO Q4HR PRN #12 tablet PRN Reason: Pain Referrals: YAZMIN MARTINEZ MD [Staff Physician] - 3-5 Days Time of Disposition: 07:37
== END 2020-09-02 08:02 | disposition home or self-care (01) ==
LOC: ED 05:46
DX: M54.16 Radiculopathy, lumbar region (principal); M62.838 Other muscle spasm; M53.3 Sacrococcygeal disorders, not elsewhere classified; M54.2 Cervicalgia; I10 Essential (primary) hypertension; J45.909 Unspecified asthma, uncomplicated; Z79.899 Other long term (current) drug therapy; Z88.8 Allergy status to other drugs, medicaments and biological substances; Z98.890 Other specified postprocedural states
CPT/HCPCS: 96372; 99283; J1100; J1885